=== PATIENT | female | born 1930 | race Caucasian/White ===

== ENCOUNTER 2017-10-19 11:24 | Observation (INO) | payer MEDICAID ==
[2017-10-19] MEDS: FUROSEMIDE 40 MG INJ IV (12:16)
[2017-10-19] MEDS: NITROGLYCERIN 2% 1 GM OINT PKT TD (12:17)
[2017-10-19 12:22] LABS: ADD MAN DIFF? NO
[2017-10-19 12:26] LABS: WHITE BLOOD COUNT 6.4 10^3/ul (4.8-10.8)
[2017-10-19 12:26] LABS: BASOPHILS % 0.6 % (0.0-2.0); EOSINOPHILS # 0.1 10^3/ul (0.0-0.5); EOSINOPHILS % 1.2 % (0.0-7.0); HEMATOCRIT 39.7 % (37.0-47.0); HEMOGLOBIN 13.1 g/dl (12.0-16.0); LYMPHOCYTES # 1.9 10^3/ul (0.8-2.9); LYMPHOCYTES % 29.8 % (15.0-51.0); MEAN CORPUSCULAR HEMOGLOBIN 30.3 pg (29.0-33.0); MEAN CORPUSCULAR VOLUME 91.7 fl (82.0-101.0); MEAN PLATELET VOLUME 11.1 fl (7.4-10.4); MONOCYTE # 0.5 10^3/ul (0.3-0.9); MONOCYTES % 8.1 % (0.0-11.0); NEUTROPHIL # 3.9 10^3/ul (1.6-7.5); NEUTROPHILS % 60.1 % (39.0-77.0); PLATELET COUNT 233 10^3/UL (140-415); RED BLOOD COUNT 4.33 10^6/ul (4.20-5.40); RED CELL DISTRIBUTION WIDTH 14.3 % (11.5-14.5)
[2017-10-19 12:45] LABS: ANION GAP 18 (8-16); BLOOD UREA NITROGEN 24 mg/dl (7-20); CARBON DIOXIDE 27 mmol/L (21-31); CHLORIDE 103 mmol/L (97-110); CREATININE 0.73 mg/dl (0.44-1.00); GLUCOSE 110 mg/dl (70-220); POTASSIUM 3.7 mmol/L (3.5-5.1); SODIUM 144 mmol/L (135-144)
[2017-10-19 12:58] LABS: B-TYPE NATRIURETIC PEPTIDE 1370 PG/ML (0-450)
[2017-10-19 13:00] LABS: TROPONIN-I < 0.012 ng/ml (0.00-0.12)
[2017-10-19] MEDS: ASPIRIN 81 MG TAB PO (13:54)
[2017-10-19] MEDS ORDERED: ONDANSETRON 4 MG INJ IV ×2 (14:00→15:00)
[2017-10-19] MEDS ORDERED: ACETAMINOPHEN 325 MG TAB PO ×2 (14:00→15:00)
[2017-10-19] MEDS ORDERED: NACL 0.9% 3 ML SYG IV (15:00)
[2017-10-19] MEDS ORDERED: morphine 2 MG INJ IV (15:00)
[2017-10-19] MEDS ORDERED: NITROGLYCERIN (SL) 0.4 MG TAB SL (15:00)
[2017-10-19] MEDS ORDERED: DOCUSATE SODIUM 100 MG CAP PO (15:00)
[2017-10-19] MEDS ORDERED: GLUCOSE GEL 15 GRAM TUBE PO ×2 (16:30)
[2017-10-19] MEDS ORDERED: GLUCAGON 1 MG INJ IM (16:30)
[2017-10-19] MEDS ORDERED: GLUCOSE GEL 15 GRAM TUBE BUCCAL (16:30)
[2017-10-19] MEDS ORDERED: DEXTROSE 50% 50 ML SYRINGE IV ×2 (16:30)
[2017-10-19] MEDS: INSULIN ASPART [NOVOLOG] 3 ML PEN SC ×2 (18:05→21:00)
[2017-10-19] MEDS: RIVAROXABAN 20 MG TABLET PO (18:13)
[2017-10-19 18:29] LABS: CREATINE KINASE 49 IU/L (23-200)
[2017-10-19 18:41] LABS: CK INDEX 1.7; CK-MB 0.85 ng/ml (0.0-2.4)
[2017-10-19 18:42] LABS: TROPONIN-I < 0.012 ng/ml (0.00-0.12)
[2017-10-19] MEDS: ATORVASTATIN 10 MG TAB PO (21:25)
[2017-10-19] MEDS: FAMOTIDINE 20 MG TAB PO (21:25)
[2017-10-19] MEDS: METOPROLOL 25 MG TAB PO (21:25)
[2017-10-19] MEDS: morphine LIQ (10 MG/5 ML) CUP PO (21:26)
[2017-10-20] LABS: CREATINE KINASE 52 IU/L (23-200)
[2017-10-20 00:09] LABS: CK INDEX 1.3; CK-MB 0.68 ng/ml (0.0-2.4)
[2017-10-20 00:12] LABS: TROPONIN-I < 0.012 ng/ml (0.00-0.12)
[2017-10-20] MEDS: ACCU-CHEK XX (02:00)
[2017-10-20 07:56] LABS: ADD MAN DIFF? NO
[2017-10-20] MEDS: INSULIN ASPART [NOVOLOG] 3 ML PEN SC ×3 (08:00→18:05)
[2017-10-20 08:02] LABS: BASOPHILS % 0.7 % (0.0-2.0); EOSINOPHILS # 0.1 10^3/ul (0.0-0.5); HEMATOCRIT 35.2 % (37.0-47.0); HEMOGLOBIN 11.7 g/dl (12.0-16.0); LYMPHOCYTES % 36.7 % (15.0-51.0); MEAN CORPUSCULAR HEMOGLOBIN 30.5 pg (29.0-33.0); MEAN CORPUSCULAR HGB CONC 33.2 g/dl (32.0-37.0); MEAN CORPUSCULAR VOLUME 91.7 fl (82.0-101.0); MEAN PLATELET VOLUME 11.3 fl (7.4-10.4); MONOCYTE # 0.5 10^3/ul (0.3-0.9); MONOCYTES % 9.3 % (0.0-11.0); NEUTROPHIL # 2.8 10^3/ul (1.6-7.5); NEUTROPHILS % 51.1 % (39.0-77.0); PLATELET COUNT 206 10^3/UL (140-415); RED BLOOD COUNT 3.84 10^6/ul (4.20-5.40); RED CELL DISTRIBUTION WIDTH 14.1 % (11.5-14.5)
[2017-10-20 08:02] LABS: WHITE BLOOD COUNT 5.4 10^3/ul (4.8-10.8)
[2017-10-20 08:49] LABS: ANION GAP 12 (8-16); BLOOD UREA NITROGEN 18 mg/dl (7-20); CALCIUM 8.8 mg/dl (8.4-10.2); CARBON DIOXIDE 30 mmol/L (21-31); CHLORIDE 103 mmol/L (97-110); CHOL/HDL RATIO 2.9 RATIO; CHOLESTEROL 173 mg/dl (100-200); CREATININE 0.73 mg/dl (0.44-1.00); GLUCOSE 97 mg/dl (70-220); HDL CHOLESTEROL 58 mg/dl (33-92); LDL CHOLESTEROL,CALCULATED 102 mg/dl; PHOSPHORUS 3.2 mg/dl (2.5-4.9); SODIUM 141 mmol/L (135-144); TRIGLYCERIDES 67 mg/dl (0-149)
[2017-10-20] MEDS ORDERED: FUROSEMIDE 40 MG INJ IV (09:00)
[2017-10-20] MEDS ORDERED: TRIAMTERENE/HCTZ (75-50) TAB PO (09:00)
[2017-10-20] MEDS: FAMOTIDINE 20 MG TAB PO (09:24)
[2017-10-20] MEDS: METOPROLOL 25 MG TAB PO (09:24)
[2017-10-20] MEDS: TRIAMTERENE/HCTZ (37.5/25) TAB PO (09:24)
[2017-10-20 10:19] LABS: HEMOGLOBIN A1C 5.5 % (0-5.9)
[2017-10-20] MEDS: LIDOCAINE/MYLANTA 40 ML BTL PO (11:00)
[2017-10-20] MEDS: SUCRALFATE (100 MG/ML) 10ML CUP PO (18:18)
[2017-10-20] MEDS: POLYETHYLENE GLYCOL 17 GM PACKET PO (18:18)
[2017-10-20] MEDS: PANTOPRAZOLE (EC) 40 MG TAB PO (18:18)
[2017-10-20] MEDS: RIVAROXABAN 20 MG TABLET PO (18:18)
[2017-10-21] MEDS ORDERED: TRIAMTERENE/HCTZ (75-50) TAB PO (09:00)
== END 2017-10-20 21:00 | disposition home or self-care (01) ==
LOC: E/R 11:24 → MS4 13:41
DX: R07.89 Other chest pain (principal); I11.0 Hypertensive heart disease with heart failure; I50.33 Acute on chronic diastolic (congestive) heart failure; E11.9 Type 2 diabetes mellitus without complications; E78.5 Hyperlipidemia, unspecified; I48.91 Unspecified atrial fibrillation; Z86.73 Personal history of transient ischemic attack (TIA), and cerebral infarction without residual deficits; Z95.0 Presence of cardiac pacemaker; Z79.01 Long term (current) use of anticoagulants
CPT/HCPCS: 36415; 71045; 80048; 80061; 82550; 82553; 82962; 83036; 83735; 83880; 84100; 84443; 84484; 85025; 93005; 93306; 96374; 99285-25; G0378

== ENCOUNTER 2018-04-03 12:29 | Observation (INO) | payer MEDICAID ==
[2018-04-03 13:24] LABS: ADD MAN DIFF? NO
[2018-04-03 13:28] LABS: WHITE BLOOD COUNT 6.6 10^3/ul (4.8-10.8)
[2018-04-03 13:28] LABS: BASOPHILS % 0.5 % (0.0-2.0); EOSINOPHILS # 0.1 10^3/ul (0.0-0.5); EOSINOPHILS % 1.2 % (0.0-7.0); HEMATOCRIT 39.3 % (37.0-47.0); HEMOGLOBIN 12.7 g/dl (12.0-16.0); LYMPHOCYTES # 1.4 10^3/ul (0.8-2.9); LYMPHOCYTES % 21.8 % (15.0-51.0); MEAN CORPUSCULAR HEMOGLOBIN 29.2 pg (29.0-33.0); MEAN CORPUSCULAR HGB CONC 32.3 g/dl (32.0-37.0); MEAN CORPUSCULAR VOLUME 90.3 fl (82.0-101.0); MEAN PLATELET VOLUME 10.4 fl (7.4-10.4); MONOCYTE # 0.6 10^3/ul (0.3-0.9); MONOCYTES % 8.4 % (0.0-11.0); NEUTROPHIL # 4.4 10^3/ul (1.6-7.5); NEUTROPHILS % 67.8 % (39.0-77.0); PLATELET COUNT 259 10^3/UL (140-415); RED BLOOD COUNT 4.35 10^6/ul (4.20-5.40); RED CELL DISTRIBUTION WIDTH 14.4 % (11.5-14.5)
[2018-04-03] MEDS: NITROGLYCERIN 2% 1 GM OINT PKT TD (13:29)
[2018-04-03] MEDS: ASPIRIN 325 MG TAB PO (13:29)
[2018-04-03 13:48] LABS: INR 0.93; PARTIAL THROMBOPLASTIN TIME 29.8 Sec (25.0-35.0); PROTIME 12.5 Sec (11.9-14.9)
[2018-04-03 13:50] LABS: ALANINE AMINOTRANSFERASE 14 IU/L (13-69); ALBUMIN 3.9 g/dl (3.3-4.9); ALBUMIN/GLOBULIN RATIO 1.05; ALKALINE PHOSPHATASE 89 IU/L (42-121); ANION GAP 13 (8-16); ASPARTATE AMINO TRANSFERASE 22 IU/L (15-46); BILIRUBIN,INDIRECT 0.3 mg/dl (0-1.1); BILIRUBIN,TOTAL 0.3 mg/dl (0.2-1.3); BLOOD UREA NITROGEN 33 mg/dl (7-20); CARBON DIOXIDE 32 mmol/L (21-31); CHLORIDE 97 mmol/L (97-110); CREATININE 1.29 mg/dl (0.44-1.00); GLUCOSE 115 mg/dl (70-220); POTASSIUM 3.4 mmol/L (3.5-5.1); SODIUM 139 mmol/L (135-144); TOTAL PROTEIN 7.6 g/dl (6.1-8.1)
[2018-04-03 14:01] LABS: B-TYPE NATRIURETIC PEPTIDE 1100 PG/ML (0-450); TROPONIN-I < 0.012 ng/ml (0.000-0.120)
[2018-04-03] MEDS ORDERED: ONDANSETRON 4 MG INJ IV (15:30)
[2018-04-03] MEDS ORDERED: NACL 0.9% 3 ML SYG IV (17:00)
[2018-04-03 17:37] LABS: TROPONIN-I < 0.012 ng/ml (0.000-0.120)
[2018-04-03] MEDS: PANTOPRAZOLE (EC) 40 MG TAB PO (17:51)
[2018-04-03] MEDS: SUCRALFATE (100 MG/ML) 10ML CUP PO ×2 (17:51→21:55)
[2018-04-03] MEDS: FUROSEMIDE 20 MG INJ IV (17:51)
[2018-04-03] MEDS: POTASSIUM CHLORIDE (SR) 20 MEQ TAB PO (21:55)
[2018-04-03] MEDS: RIVAROXABAN 20 MG TABLET PO (21:55)
[2018-04-03] MEDS: FAMOTIDINE 20 MG TAB PO (21:56)
[2018-04-03] MEDS: ATORVASTATIN 10 MG TAB PO (21:56)
[2018-04-03] MEDS: METOPROLOL 25 MG TAB PO (21:59)
[2018-04-04] MEDS ORDERED: ACETAMINOPHEN 325 MG TAB PO (02:40)
[2018-04-04] MEDS: ACETAMINOPHEN 325 MG TAB PO ×2 (02:41→11:02)
[2018-04-04 06:18] LABS: HEMOGLOBIN A1C 6.2 % (0-5.9)
[2018-04-04] MEDS: PANTOPRAZOLE (EC) 40 MG TAB PO (06:47)
[2018-04-04 07:21] LABS: ANION GAP 11 (8-16); BLOOD UREA NITROGEN 28 mg/dl (7-20); CARBON DIOXIDE 31 mmol/L (21-31); CHLORIDE 100 mmol/L (97-110); CREATININE 1.08 mg/dl (0.44-1.00); GLUCOSE 107 mg/dl (70-220); MAGNESIUM 2.1 mg/dl (1.7-2.5); SODIUM 138 mmol/L (135-144)
[2018-04-04] MEDS: METOPROLOL 25 MG TAB PO (08:13)
[2018-04-04] MEDS: SUCRALFATE (100 MG/ML) 10ML CUP PO ×2 (08:13→13:38)
[2018-04-04] MEDS: POLYETHYLENE GLYCOL 17 GM PACKET PO (08:14)
[2018-04-04] MEDS: FUROSEMIDE 20 MG INJ IV (11:03)
== END 2018-04-04 18:00 | disposition home or self-care (01) ==
LOC: E/R 12:29 → 6WM 15:06
DX: R07.89 Other chest pain (principal); I48.91 Unspecified atrial fibrillation; I50.22 Chronic systolic (congestive) heart failure; Z95.0 Presence of cardiac pacemaker; Z86.73 Personal history of transient ischemic attack (TIA), and cerebral infarction without residual deficits
CPT/HCPCS: 36415; 71045; 80048; 80053; 83036; 83735; 83880; 84484; 85025; 85610; 85730; 93005; 93306; 99285-25; G0378